=== PATIENT | female | born 1950 | race Caucasian/White ===

== ENCOUNTER 2023-12-29 00:09 | Day surgery (SDC) | payer OTHER, SELFPAY ==
--- NOTE | 2023-12-14 08:59 | PC.NURSE ---
number listed in pts chart is the wrong number, pt does not have a pcp listd. called dr evangelista's office and left vm that there is no way to reach patient.
[2023-12-18 10:41] VITALS: BMI 35.9
[2023-12-29 08:31] VITALS: BP 159/92; PULSE 81; RESP 18; TEMP 36.6; O2SAT 99
[2023-12-29] MEDS: LACTATED RINGERS 1,000 ML 150 ML IV CONT (08:46)
--- NOTE | 2023-12-29 09:03 | WPDANESEPPF ---
Anes - Initial Pre Proc Eval Procedure: Operation Date: 12/29/23 10:00 Proposed Procedures p Colonoscopy - Otto Howell MD Date/Time: 12/29/23 09:03 Surgeon: Otto Howell MD Pre Op Diagnosis: personal hx. colon polyps Patient Data Age: 73 Gender: F Height: 1.55 m Weight: 84.3 kg Last Vital Signs Temp 97.8 F 12/29/23 08:31 Pulse 81 12/29/23 08:31 Resp 18 12/29/23 08:31 BP 159/92 H 12/29/23 08:31 Pulse Ox 99 12/29/23 08:31 O2 Del Method Room Air 12/29/23 08:31 Allergies Allergy/AdvReac Type Severity Reaction Status Date / Time No Known Allergies Allergy Verified 12/29/23 08:30 Home Medications Medication Instructions Recorded Confirmed Type aspirin 81 mg tablet,delayed 81 mg PO DAILY 12/18/23 12/18/23 History release dapagliflozin propanediol 10 mg 10 mg PO DAILY 12/18/23 12/18/23 History tablet (Farxiga) ergocalciferol (vitamin D2) 1,250 50,000 unit PO WEEKLY 12/18/23 12/18/23 History mcg (50,000 unit) capsule metformin 1,000 mg tablet 1,000 mg PO BID 12/18/23 12/18/23 History trazodone 50 mg tablet 50 mg PO HS 12/18/23 12/18/23 History valsartan 160 mg tablet 160 mg PO DAILY 12/18/23 12/18/23 History Patient hx anesthesia problems: none Family hx anesthesia problems: none Results Review: All pre-operative results and documents have been reviewed as part of the pre-operative evaluation. [facility] Social History Social History Smoking status: Never smoker Substance use type: does not use Living arrangements: alone Anes - Eval Final PreProcedure Day of Procedure 12/29/23 09:03 Patient weight: obese Heart: regular rate and rhythm Lungs: clear to auscultation Airway: Mallampati scale class II Neurological: alert and oriented Last oral intake: >/= 8 hours ASA classification: III Emergent: no Anesthetic plan: proceed Anesthesia type and monitoring: general GIVS and standard monitoring Results Review: All pre-operative results and documents have been reviewed as part of the pre-operative evaluation. Informed Consent: The patient's anesthetic plan and its attendant risks and benefits were discussed with the patient/family/POA. Questions were solicited and answers provided to the satisfaction of the patient/family/POA.
--- NOTE | 2023-12-29 09:13 | PM.HPGS ---
History of Present Illness History of Present Illness Consent: Risks, benefits, and alternatives have been discussed and questions answered. Patient agrees to proceed with procedure. Chief complaint: personal hx. colon polyps Narrative: Mikaela Sparks is a 73 year old female with polyps about 10 years ago, also diarrhea for 6 months Review of Systems Review of Systems: All systems reviewed & are unremarkable except as noted in HPI and below PMFSH Past Medical History Medical History (Updated 12/29/23 @ 09:16 by Otto Howell MD) Colon polyp Diarrhea Social History Social History Smoking status: Never smoker Substance use type: does not use Living arrangements: alone Meds Home Medications and Allergies Home Medications Medication Instructions Recorded Confirmed Type aspirin 81 mg tablet,delayed 81 mg PO DAILY 12/18/23 12/18/23 History release dapagliflozin propanediol 10 mg 10 mg PO DAILY 12/18/23 12/18/23 History tablet (Farxiga) ergocalciferol (vitamin D2) 1,250 50,000 unit PO WEEKLY 12/18/23 12/18/23 History mcg (50,000 unit) capsule metformin 1,000 mg tablet 1,000 mg PO BID 12/18/23 12/18/23 History trazodone 50 mg tablet 50 mg PO HS 12/18/23 12/18/23 History valsartan 160 mg tablet 160 mg PO DAILY 12/18/23 12/18/23 History Allergies Allergy/AdvReac Type Severity Reaction Status Date / Time No Known Allergies Allergy Verified 12/29/23 08:30 Vital Signs Vital Signs - 24 hr 12/29/23 08:31 Temperature 97.8 F Pulse Rate 81 Respiratory Rate 18 Blood Pressure 159/92 H Pulse Oximetry 99 Oxygen Delivery Room Air Exam Const: General: comfortable and no acute distress HENMT: Face/Nose/Sinus: Normal nares present Eyes: General: appearance normal, both eyes and all related structures Neck: Neck: no JVD Resp: Auscultation: clear to auscultation bilaterally Cardio: Rate: regular rate Rhythm: regular rhythm GI: Inspection: non-distended GI Palp: Yes Soft to palpation Skin: General skin exam: normal color Neuro: General: gait normal Speech: normal speech Extrem: General: normal to inspection Psych: Mental Status: mental status grossly normal Assessment and Plan Assessment and plan (1) Colon polyp: Code(s): K63.5 - Polyp of colon Status: Acute Assessment and Plan: colonoscopy (2) Diarrhea: Code(s): R19.7 - Diarrhea, unspecified Status: Acute
[2023-12-29 09:17] LABS: Glucose Point of Care 157 mg/dl (65-105)
[2023-12-29 09:33] VITALS: BP 91/56; PULSE 62; RESP 16; O2SAT 94
[2023-12-29 09:43] VITALS: BP 110/63; PULSE 62; RESP 19; O2SAT 97
[2023-12-29 09:53] VITALS: BP 116/75; PULSE 60; RESP 18; O2SAT 97
== END 2023-12-29 09:54 | disposition home or self-care (01) ==
PROVIDERS: PCP Internal Medicine; Visit Provider Internal Medicine Gastroenterology
PROC: 0DJD8ZZ Inspection of Lower Intestinal Tract, Via Natural or Artificial Opening Endoscopic (ICD-10-PCS; CPT 45378; principal; 2023-12-29 10:00)
DX: R19.7 Diarrhea, unspecified (principal); K57.30 Diverticulosis of large intestine without perforation or abscess without bleeding; K64.8 Other hemorrhoids; Z86.010 Personal history of colon polyps; Z79.84 Long term (current) use of oral hypoglycemic drugs; Z79.82 Long term (current) use of aspirin; E66.9 Obesity, unspecified; Z68.35 Body mass index [BMI] 35.0-35.9, adult
CPT/HCPCS: 45380; 82948; 88305; J2704; J7120